=== PATIENT | female | born 1975 | race African-American/Black ===

== ENCOUNTER 2022-08-04 02:54 | Emergency (ER) | payer SELFPAY ==
[~2022-08-04] VITALS: Ht 162.6 cm; Wt 75.0 kg
[2022-08-04 03:00] VITALS: BP 96/55
[2022-08-04] MEDS ORDERED: SODIUM CHLORIDE 0.9% 1,000 ML IV ONE (03:30)
[2022-08-04 03:53] LABS: BG BASE EXCESS -1.1 mmol/L (-2.0-2.0); BG CARBOXYHEMOGLOBIN 2.9 % (0.5-1.5); BG DEOXYHEMOGLOBIN 4.6 % (0.0-5.0); BG FRACTION INSPIRED OXYGEN 21; BG METHEMOGLOBIN 0.4 % (0.0-1.5); BG OXYGEN SATURATION 95.2 % (92.0-98.5); BG OXYHEMOGLOBIN 92.1 % (94.0-97.0); BG PCO2 41.5 mmHg (35.0-45.0); BG PO2 77.5 mmHg (75.0-100.0); BG SAMPLE SITE LEFT RADIAL; BG VENT MODE ROOM AIR
[2022-08-04 04:20] LABS: BASOPHILS % 0.3 % (0.0-2.0); EOSINOPHILS % 0.2 % (0.0-5.0); HEMATOCRIT. 42.3 % (36.0-48.0); HEMOGLOBIN. 13.5 g/dL (12.0-16.0); LYMPHOCYTES % 10.2 % (20.0-50.0); MEAN CORPUSCULAR HEMOGLOBIN 23.3 pg (28.0-32.0); MEAN CORPUSCULAR VOLUME 73.1 fL (81.0-99.0); MEAN PLATELET VOLUME 8.2 fl (7.4-10.4); MONOCYTES % 6.2 % (2.0-8.0); NEUTROPHILS % 83.1 % (40.0-76.0); PLATELET 375 x1000/uL (130-400); RED BLOOD CELL COUNT 5.79 mill/uL (4.2-5.4); RED CELL DISTRIBUTION WIDTH 14.9 % (11.6-14.6)
[2022-08-04 04:29] LABS: HCG SCREEN NEGATIVE
[2022-08-04 04:47] LABS: CHLORIDE 106 mEq/L (98-107)
[2022-08-04 04:57] LABS: ETHANOL BLOOD < 10 mg/dL
== END 2022-08-04 04:35 | disposition home or self-care (01) ==
LOC: ER 02:54 → EDBD 02:54 → ER 04:35
DX: R41.82 Altered mental status, unspecified (principal)
CPT/HCPCS: 36415; 36600; 71045; 80053; 80307; 80320; 80329; 82375; 82805; 83605; 84484; 84703; 85025; 93005; 99285; J7030; Z7610; G0480